=== PATIENT | male | born 1985 | race Caucasian/White ===

== ENCOUNTER → 2021-10-11 | Day surgery (SDC) | payer OTHER ==
[~2021-10-11] VITALS: Ht 185.4 cm; Wt 149.7 kg
[~2021-10-11] MED LIST: DICLOFENAC SODI75 MG PO
[2021-10-11 06:59] LABS: ALBUMIN 3.9 g/dL (3.4-5.0); BILIRUBIN - TOTAL 0.7 mg/dL (0.2-1.0); BUN/CREAT RATIO (CALC) 15.3 RATIO; CREATININE 0.72 mg/dL (0.67-1.17); GLOBULIN (CALCULATION) 3.5 g/dL; TOTAL PROTEIN 7.4 g/dL (6.4-8.2)
[2021-10-11 07:00] LABS: HCT 48.1 % (42.0-52.0); HGB 16.3 g/dl (13.2-18.0); MCH 31.3 pg (25.0-31.0); MCHC 33.9 g/dL (32.0-36.0); MCV 92.3 fL (78.0-100.0); MPV 11.7 fL (6.0-9.5); RBC 5.21 M/uL (4.70-6.00); RDW 12.4 % (11.5-14.0)
== END | disposition home or self-care (01) ==
LOC: FAS 06:02
PROVIDERS: Orthopaedic Surgery
DX: G56.03 Carpal tunnel syndrome, bilateral upper limbs (principal); I10 Essential (primary) hypertension; Z88.0 Allergy status to penicillin
CPT/HCPCS: 36415; 80053; J1100; J1885; J2250; J2405; J2704; J3010; J7120